=== PATIENT | male | born 1975 | race African-American/Black ===

== ENCOUNTER 2020-07-11 08:58 | Emergency (ER) | payer OTHER ==
[~2020-07-11] VITALS: Ht 167.6 cm; Wt 77.1 kg
[2020-07-11 09:07] VITALS: BP 134/94; TEMP 97.6
== END 2020-07-11 09:58 | disposition home or self-care (01) ==
LOC: ED 08:58
DX: S22.41XA Multiple fractures of ribs, right side, initial encounter for closed fracture (principal); M54.2 Cervicalgia; M25.511 Pain in right shoulder; W11.XXXA Fall on and from ladder, initial encounter; Y92.89 Other specified places as the place of occurrence of the external cause
CPT/HCPCS: 96372; 99283; J1885